=== PATIENT | male | born 1975 | race Caucasian/White ===

== ENCOUNTER 2017-02-26 05:07 | Emergency (ER) | payer OTHER ==
--- NOTE | 2017-02-26 05:31 | ER Document Report ---
HPI - HPI Notes: Patient is a 41-year-old male who presents ED complaining of ongoing right ankle pain 1-2 months with evaluation from an orthopedic provider 2 weeks ago. Patient is also complaining of right MTP joint pain 2 days that he believes is another gout flareup. Patient has a history significant for gout and hypertension. Patient states that he has had multiple acute gouty attacks in that same area. She states that he did have an MRI of his right ankle 2 weeks ago which showed soft tissue damage. Patient reports going on vacation to [facility] about 9 days ago and returned 2 days ago. Patient states that he walked about 10 miles which he believes reaggravated his ankle and because the gout flareup in his right MTP joint. Patient states that he has also been running a fever over the last 8-10 hours. Patient states that otherwise he feels well and is eating and drinking without any difficulties. Patient is urinating normally. Patient states that he has had loose stool 2-3 times per day over the last 1-1/2 weeks. Stools are watery. Patient states that he did have an antibiotic prior to that for a finger infection on the right hand, but denies any abdominal cramping or pain associated with his bowel movements. He denies any melena or hematochezia. Denies any headache, neck pain, URI, sore throat, chest pain, palpitations, syncope, cough, shortness of breath, wheeze, dyspnea, abdominal pain, nausea/vomiting, urinary retention, dysuria, hematuria , loss of control of bowel or bladder, numbness/tingling, saddle anesthesia, muscle paralysis/weakness. - ROS Notes: REVIEW OF SYSTEMS: CONSTITUTIONAL : see hpi. EENT: Denies eye, ear, throat, or mouth pain or symptoms. Denies nasal or sinus congestion or discharge. Denies throat, tongue, or mouth swelling or difficulty swallowing. CARDIOVASCULAR: Denies chest pain. Denies palpitations or racing or irregular heart beat. Denies ankle edema. RESPIRATORY: Denies cough, cold, or chest congestion. Denies shortness of breath, difficulty breathing, or wheezing. GASTROINTESTINAL: Denies abdominal pain or distention. Denies nausea, vomiting. Denies blood in vomitus, stools, or per rectum. Denies black, tarry stools. Denies constipation. GENITOURINARY: Denies difficulty urinating, painful urination, burning, frequency, blood in urine, or discharge. MUSCULOSKELETAL: see hpi SKIN: Denies rash, lesions or sores. NEUROLOGICAL: Denies confusion or altered mental status. Denies passing out or loss of consciousness. Denies dizziness or lightheadedness. Denies headache. Denies weakness or paralysis or loss of use of either side. Denies problems with gait or speech. Denies sensory loss, numbness, or tingling. ALL OTHER SYSTEMS REVIEWED AND NEGATIVE. Dictation was performed using [employer] voice recognition software Past Medical History - Social History Smoking Status: Unknown if Ever Smoked Family History: Reviewed & Not Pertinent - Past Medical History Cardiac Medical History: Reports: Hx Hypercholesterolemia, Hx Hypertension Denies: Hx Coronary Artery Disease, Hx Heart Attack Pulmonary Medical History: Denies: Hx Asthma, Hx Bronchitis, Hx COPD, Hx Pneumonia Neurological Medical History: Denies: Hx Cerebrovascular Accident, Hx Seizures GI Medical History: Reports: Hx Gastroesophageal Reflux Disease Musculoskeltal Medical History: Reports Hx Arthritis - KNEES, GOUT, Reports Hx Gout Psychiatric Medical History: Reports: Hx Anxiety Past Surgical History: Reports: Hx Cardiac Catheterization - to close extra duct at age 16 - Immunizations Hx Diphtheria, Pertussis, Tetanus Vaccination: Yes Vertical Provider Document - CONSTITUTIONAL Agree With Documented VS: Yes Notes: PHYSICAL EXAMINATION: GENERAL: Well-appearing, well-nourished and in no acute distress. A&Ox4 HEAD: Atraumatic, normocephalic. EYES: Pupils equal round and reactive to light, extraocular movements intact, sclera anicteric, conjunctiva are normal. ENT: Nares patent and without discharge. oropharynx clear without exudates. No tonsilar hypertrophy or erythema. Moist mucous membranes. NECK: Normal range of motion, supple without lymphadenopathy. No rigidity/ meningismus. LUNGS: Breath sounds clear to auscultation bilaterally and equal. No wheezes rales or rhonchi. HEART: Regular rate and rhythm without murmurs, rubs, gallops. ABDOMEN: Soft, nontender, nondistended abdomen. No guarding, no rebound. No masses appreciated. Normal bowel sounds present. No CVA tenderness bilaterally. Musculoskeletal: FROM to passive/active. Strength 5+/5. Julio negative. No calf erythema or swelling. Rt ankle: + mild tenderness to the rt lateral malleolus. + mild swelling. ( pt reports chronic and same pain eval'd by Ortho). Rt foot: + tenderness to the rt MTP joint. No obvious erythema, streaks, or deformity. + tenderness to light touch as well. No effusion. Extremities: No cyanosis, clubbing, or edema b/l. Peripheral pulses 2+. Capillary refill less than 3 seconds. NEUROLOGICAL: Cranial nerves grossly intact. Normal speech, normal gait. Normal sensory, motor exams PSYCH: Normal mood, normal affect. SKIN: several small 0.1cm papular rash to the LE's b/l. Non-tender. No signs of cellulitis or abscess. - INFECTION CONTROL TRAVEL OUTSIDE OF THE [place] IN LAST 30 DAYS: No Course - Re-evaluation Re-evalutation: 02/26/17 07:[address] Hanna who also eval'd the patient: Patient is an afebrile, well-hydrated, 41-year-old male who presents to the ED with diarrhea, suspect traveler's, gout to the rt MTP, and soft tissue inflammation to the rt ankle. CBC unremarkable. CMP pending. If CMP comes back unremarkable, we will be able to discharge in stable condition. Low suspicion/risk for any septic joint, acute appendicitis, bowel obstruction, acute cholecystitis, perforated diverticulitis, incarcerated hernia, pancreatitis, perforated ulcer, peritonitis, sepsis, testicular torsion, or other systemic emergent condition at this time. Patient is aware that his condition can change from initial presentation and he needs to monitor symptoms closely and seek medical attention if any acute changes. Pt was given tylenol/ toradol from EMS. Solumedrol given IV today. I will send him home with the finishing Rx for Cipro 750mg PO BID x3 days as well as a prednisone taper and norco dispense pack. Conservative measures otherwise for symptoms. Recheck with PCM in 2-3 days. Consider consult with a analysis internship/Orthopedics. Return to the ED with any worsening/concerning symptoms otherwise as reviewed in discharge. Patient is in agreement. - Laboratory Result Diagrams: 02/26/17 06:25 02/26/17 06:25 Discharge - Discharge Clinical Impression: Diarrhea Qualifiers: Diarrhea type: presumed infectious Qualified Code(s): A09 - Infectious gastroenteritis and colitis, unspecified Gout Qualifiers: Gout site: toe Gout etiology: unspecified cause Chronicity: acute Laterality: right Qualified Code(s): M10.9 - Gout, unspecified Right ankle pain Qualifiers: Chronicity: acute Qualified Code(s): M25.571 - Pain in right ankle and joints of right foot Condition: Stable Disposition: HOME, SELF-CARE Instructions: Ankle Stirrup Splint ([facility]), Use of Crutches ([facility]), Diarrhea, Nonspecific ([facility]), Gout ([facility]), Gout Diet ([facility]), Ice & Elevation ([facility]) Additional Instructions: Maintain adequate fluid and food intake [place] diet ([employer] Bananas, rice, apples, toast, etc tylenol if needed Monitor for any worsening symptoms Rest, Ice, Compression, Elevation; use splint/crutches as directed Recheck with your PCM in 2-3 days Consider consult with Gastroenterology for ongoing/worsening symptoms Return to the ED with any worsening symptoms and/or development of fever, headache, chest pain, palpitations, syncope, shortness of breath, trouble breathing, abdominal pain, n/v/d, blood in stool/urine, weakness, or other worsening symptoms that are concerning to you. Prescriptions: Ciprofloxacin HCl [Cipro 750 mg Tablet] 750 mg PO BID #5 tablet Prednisone [Deltasone 10 mg Tablet] 10 mg PO ASDIR PRN #21 tablet PRN Reason: Forms: Elevated Blood Pressure Referrals: DAGOBERTO MC MD [ACTIVE STAFF] - Follow up as needed [facility] [Provider Group] - Follow up as needed
[2017-02-26] MEDS ORDERED: DOXYCYCLINE HYCLATE 100 MG TABLET PO ONE (06:05)
[2017-02-26] MEDS ORDERED: MORPHINE SULFATE IR 15 MG TABLET PO ONE (06:05)
[2017-02-26] MEDS ORDERED: NORMAL SALINE 1000 ML 1,000 ML IV ONE (06:05)
[2017-02-26] MEDS ORDERED: CIPROFLOXACIN HCL 750 MG TABLET PO ONE (06:08)
[2017-02-26] MEDS ORDERED: HYDROCODONE/ACETAMINOPHEN 5-325 MG 6 TAB/DSPK PO PRN (06:16)
[2017-02-26] MEDS ORDERED: METHYLPREDNISOLONE INJ 125 MG/2 ML SDV IV ONE (06:33)
[2017-02-26 06:43] LABS: ABSOLUTE BASOPHILS # (AUTO) 0.1 10^3/uL (0.0-0.2); ABSOLUTE EOSINOPHILS # (AUTO) 0.1 10^3/uL (0.0-0.6); ABSOLUTE LYMPHOCYTES (AUTO) 1.6 10^3/uL (0.5-4.7); ABSOLUTE MONOCYTES (AUTO) 0.8 10^3/uL (0.1-1.4); ABSOLUTE NEUT (AUTO) 5.2 10^3/uL (1.7-8.2); BASOPHILS % (AUTO) 0.7 % (0-2); EOSINOPHILS % (AUTO) 1.6 % (0-6); HEMATOCRIT 37.7 % (37.9-51.0); HEMOGLOBIN 13.1 g/dL (13.5-17.0); HGB HCT DIFFERENCE 1.6; LYMPHOCYTES % (AUTO) 20.8 % (13-45); MEAN CORPUSCULAR HEMOGLOBIN 31.3 pg (27.0-33.4); MEAN CORPUSCULAR HGB CONC 34.7 g/dL (32.0-36.0); MEAN CORPUSCULAR VOLUME 90 fl (80-97); MONOCYTES % (AUTO) 10.7 % (3-13); RED BLOOD COUNT 4.18 10^6/uL (4.35-5.55); RED CELL DISTRIBUTION WIDTH 12.9 % (11.5-14.0); SEGMENTED NEUTROPHILS % (AUTO) 66.2 % (42-78); WHITE BLOOD COUNT 7.9 10^3/uL (4.0-10.5)
[2017-02-26 07:06] LABS: ALANINE AMINOTRANSFERASE 67 U/L (21-72); ALBUMIN 3.8 g/dL (3.5-5.0); ALKALINE PHOSPHATASE 68 U/L (38-126); ANION GAP 16 (5-19); ASPARTATE AMINO TRANSFERASE 58 U/L (17-59); BILIRUBIN,DIRECT 0.4 mg/dL (0.0-0.4); BILIRUBIN,TOTAL 0.9 mg/dL (0.2-1.3); BLOOD UREA NITROGEN 5 mg/dL (7-20); CALCIUM 8.6 mg/dL (8.4-10.2); CARBON DIOXIDE 19 mmol/L (22-30); CHLORIDE 107 mmol/L (98-107); CREATININE RESULT 0.71 mg/dL (0.52-1.25); GLUCOSE 122 mg/dL (75-110); POTASSIUM 3.7 mmol/L (3.6-5.0)
[2017-02-26] MEDS ORDERED: METOCLOPRAMIDE HCL INJ/PF 10 MG/2 ML SDV IV ONE (07:13)
[2017-02-26 08:05] VITALS: BP 118/64
== END 2017-02-26 08:05 | disposition home or self-care (01) ==
LOC: ER 05:07
DX: M10.9 Gout, unspecified (principal); M25.571 Pain in right ankle and joints of right foot; I10 Essential (primary) hypertension; R19.7 Diarrhea, unspecified; R50.9 Fever, unspecified; R21 Rash and other nonspecific skin eruption
CPT/HCPCS: 99283; 96361; 96374; 36415; 85025; 80053; L1902; J2930; J3490; J7030

== ENCOUNTER 2017-06-03 09:18 | Emergency (ER) | payer BC ==
[2017-06-03] MEDS ORDERED: OXYCODONE-ACETAMINOPHEN 5-325 MG TABLET PO ONE ×2 (10:21→14:06)
[2017-06-03] MEDS ORDERED: NAPROXEN 250 MG TABLET PO ONE (10:21)
--- NOTE | 2017-06-03 10:22 | ER Document Report ---
ED Extremity Problem, Lower - General Chief Complaint: Foot Pain Stated Complaint: FOOT PAIN Time Seen by Provider: 06/03/17 09:37 Mode of Arrival: Ambulatory Information source: Patient Notes: 41-year-old male presents to ED for complaint of left foot pain since last night. States he was standing up on a chair last night when he heard a very loud pop. Pain started soon afterwards. He states he is having trouble walking on his foot. States he has a history of gout in this foot but this is not what this pain is. States he had surgery on both knees and he has a lot of problems with his right ankle and foot. TRAVEL OUTSIDE OF THE [place] IN LAST 30 DAYS: No COUNTRY TRAVELED TO/FROM: [facility] Patient complains to provider of: Injury, Pain, Swelling Location: Foot Occurred: Yesterday Where: Home, Indoors Onset/Duration: Gradual Quality of pain: Burning, Sharp Severity: Severe Pain Level: 5 Context: Other Recent injury: Yes Associated symptoms: [place] a pop - Stated on a chair and heard a very loud pop, Painful ambulation Exacerbated by: Hanging down, Movement, Walking Relieved by: Elevation, Ice, Rest - Related Data Allergies/Adverse Reactions: Penicillins Allergy (Unknown, Verified 06/03/17 09:20) Past Medical History - General Information source: Patient - Social History Smoking Status: Current Every Day Smoker Cigarette use (# per day): Yes - Half pack a day Chew tobacco use (# tins/day): No Smoking Education Provided: Yes - 4 minutes Frequency of alcohol use: Social Drug Abuse: None 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 denies: COPD, CVA Patient has suicidal ideation: No Patient has homicidal ideation: No - Past Medical History Cardiac Medical History: Reports: Hx Congestive Heart Failure, Hx Hypercholesterolemia, Hx Hypertension Pulmonary Medical History: Reports: None EENT Medical History: Reports: None Neurological Medical History: Reports: None Endocrine Medical History: Reports: None Renal/ Medical History: Reports: None Malignancy Medical History: Reports None GI Medical History: Reports: Hx Gastroesophageal Reflux Disease Musculoskeltal Medical History: Reports Hx Arthritis - KNEES, GOUT, Reports Hx Gout, Reports Hx Musculoskeletal Deformity, Reports Hx Musculoskeletal Trauma Skin Medical History: Reports None Psychiatric Medical History: Reports: Hx Anxiety, Hx Depression Traumatic Medical History: Reports: Hx Fractures Infectious Medical History: Reports: None Past Surgical History: Reports: Hx Cardiac Catheterization - to close extra duct at age 16, Hx Cholecystectomy, Hx Orthopedic Surgery - Bilat knees - Immunizations Immunizations up to date: Yes Hx Diphtheria, Pertussis, Tetanus Vaccination: Yes Review of Systems - Review of Systems Constitutional: No symptoms reported EENT: No symptoms reported Cardiovascular: No symptoms reported Respiratory: No symptoms reported Gastrointestinal: No symptoms reported Genitourinary: No symptoms reported Male Genitourinary: No symptoms reported Musculoskeletal: Other - Left foot pain to the arch of the foot and above the arch of the foot Skin: No symptoms reported Hematologic/Lymphatic: No symptoms reported Neurological/Psychological: No symptoms reported -: Yes All other systems reviewed and negative Physical Exam - Vital signs Vitals: Temp Pulse Resp BP Pulse Ox 98.3 F 91 18 144/96 H 98 06/03/17 09:22 06/03/17 09:22 06/03/17 09:22 06/03/17 09:22 06/03/17 09:22 Interpretation: Normal - General General appearance: Appears well, Alert - HEENT Head: Normocephalic, Atraumatic Eyes: Normal Pupils: PERRL - Respiratory Respiratory status: No respiratory distress Chest status: Nontender Breath sounds: Normal Chest palpation: Normal - Cardiovascular Rhythm: Regular Heart sounds: Normal auscultation Murmur: No - Abdominal Inspection: Normal Distension: No distension Bowel sounds: Normal Tenderness: Nontender Organomegaly: No organomegaly - Back Back: Normal, Nontender - Extremities General upper extremity: Normal inspection, Nontender, Normal color, Normal ROM , Normal temperature General lower extremity: Normal inspection, Normal temperature. No: Julio's sign Foot: Tender, Ecchymosis, Edema, Metatarsal compress. pain, No evidence of FB. No: Abrasion, Deformity, Instability, Laceration, Nail injury, Puncture wound - Neurological Neuro grossly intact: Yes Cognition: Normal Orientation: AAOx4 Stephany Coma Scale Eye Opening: Spontaneous Stephany Coma Scale Verbal: Oriented Stephany Coma Scale Motor: Obeys Commands Stephany Coma Scale Total: 15 Speech: Normal Motor strength normal: LUE, RUE, LLE, RLE Sensory: Normal - Psychological Associated symptoms: Normal affect, Normal mood - Skin Skin Temperature: Warm Skin Moisture: Dry Skin Color: Normal Course - Re-evaluation Re-evalutation: 06/03/17 14:39 A controlled substance reporting system was investigated. His last narcotic prescription was for 20 Percocet on April 052017. He told me that he had a injury on the other ankle and had an MRI on that.. He has a new injury of a torn tendon today. I have given him a prescription of Percocet he has a posterior ankle splint on he was treated with Percocet twice naproxen and Decadron in the emergency room. I have contacted Dr. Macias and informed him of the injury He instructed the patient should be no weightbearing and should follow-up with the office tomorrow. - Vital Signs Vital signs: Temp Pulse Resp BP Pulse Ox 98.5 F 79 18 137/94 H 100 06/03/17 14:06 06/03/17 14:06 06/03/17 14:06 06/03/17 14:06 06/03/17 14:06 - Diagnostic Test Radiology reviewed: Image reviewed, Reports reviewed Procedures - Immobilization Left Foot Time completed: 14:41 Pre-Proc Neuro Vasc Exam: Normal Immobilizer type: Posterior ankle Performed by: PCT Post-Proc Neuro Vasc Exam: Normal Alignment checked and good: Yes Discharge - Discharge Clinical Impression: distal tibialis anterior tendon tear left Condition: Stable Disposition: HOME, SELF-CARE Additional Instructions: He was seen today for a tear to the distal tibialis anterior tendon on the left foot at its insertion at the base of the first metatarsal. This injury needs a splint foot elevated and no weightbearing this foot should not touch the floor until you follow-up with orthopedics. Splint Pending Casting Your injury can't be casted until the swelling has subsided. Therefore, a temporary splint has been placed to protect the injury. Full use of an injured area is not possible in a splint. You should follow the doctor's instructions concerning rest, ice, and elevation of the injury. Never do anything which causes pain under the splint. Keep the splint on ALL THE TIME until you return for casting. If there is unexpected severe pain, or numbness, discoloration, or swelling beyond the splint, you should return at once. Absolutely no weightbearing on this foot that needs this that she did not touch the ground. You will be discharged home with crutches this foot should not touch the ground until you follow-up with orthopedics. USE OF CRUTCHES: The doctor has recommended that you not bear weight at this time. You will need to use crutches. Adjust the crutches so the tops come to about two inches under the armpit while you are standing upright. Use your hands -- not your armpits -- to support your weight. To get into a chair, support yourself with one crutch on the injured side. Hold the chair with the other hand, then lower yourself while putting all your weight on the good leg. Going up stairs is `good leg up, step up, then bring up crutches and bad leg.' Down stairs is `bad leg and crutches down, then bring good leg down.' If you develop numbness or swelling in an arm or hand, you are using the crutches incorrectly. Return if you are having any problems with the crutches. ICE & ELEVATION: Apply ice packs frequently against the painful area. Many different schedules are recommended, such as "20 minutes on, 20 minutes off" or "one hour ice, two hours rest." If you need to work, you may need to go longer between ice treatments. You should plan to have the area ice packed AT LEAST one- fourth of the time. The ice should be applied over the wrap, tape, or splint, or over a layer of cloth -- not directly against the skin. Some ice bags have a built-in cloth and can be put directly on the skin. Your injured part should be elevated as much as possible over the next 48 hours. Try to keep the injury above the level of the heart. Avoid use of the injured area. Elevation and rest will decrease the swelling. USE OF LRYT-WAX-RYDAYDS IBUPROFEN: Ibuprofen (Advil, Nuprin, Medipren, Motrin IB) is a medication for fever and pain control. In addition, it has anti- inflammatory effects which may be beneficial, especially in the treatment of injuries. It's best to take ibuprofen with food. Persons with ulcer disease or allergy to aspirin should notify their physician of this before taking ibuprofen. Ibuprofen can be given every four to six hours, for a total of four doses daily. Age Pain or fever dose Antiinflammatory dose 6-8 yr 200 mg (1 tab) 200 mg (1 tab) 9-11 yr 200 mg (1 tab) 200-400 mg (1-2 tab) 11-14 yr 200-400 mg (1-2 tab) 400 mg (2 tab) 15-adult 400 mg (2 tab) 600 mg (3 tab) ORAL NARCOTIC MEDICATION: You have been given a prescription for pain control. This medication is a narcotic. It's best taken with food, as nausea can result if taken on an empty stomach. Don't operate machinery or drive within six hours of taking this medication. Do not combine this medicine with alcohol, or with any medication which can cause sedation (such as cold tablets or sleeping pills) unless you get permission from the physician. Narcotics tend to cause constipation. If possible, drink plenty of fluids and eat a diet high in fiber and fruits. Please be aware that prescription narcotics also have the potential for abuse. People become addicted to these medications because of the general sense of wellbeing that they induce. This feeling along with a significant reduction in tension, anxiety, and aggression provides a stimulating seductive quality to these drugs. Once your pain is under control, we encourage you to discard your unused narcotics. FOLLOW-UP CARE: If you have been referred to a physician for follow-up care, call the physician s office for an appointment as you were instructed or within the next two days. If you experience worsening or a significant change in your symptoms, notify the physician immediately or return to the Emergency Department at any time for re-evaluation. Prescriptions: Oxycodone HCl/Acetaminophen [Percocet 5-325 mg Tablet] 1 tab PO Q4HP PRN #15 tablet PRN Reason: Forms: Elevated Blood Pressure, Smoking Cessation Education, Return to Work Referrals: RADHA MACIAS MD [ACTIVE STAFF] - Follow up tomorrow
--- NOTE | 2017-06-03 11:13 | RADIOLOGY REPORT (SQ) ---
EXAM DESCRIPTION: FOOT LEFT COMPLETE COMPLETED DATE/TIME: 06/03/2017 10:42 am REASON FOR STUDY: pain arch COMPARISON: None. NUMBER OF VIEWS: Three views. TECHNIQUE: AP, lateral and oblique radiographic images acquired of the left foot. LIMITATIONS: None. FINDINGS: MINERALIZATION: Normal. BONES: The base of the 1st metatarsal is abnormal. There is sclerosis present. On the AP view, ther e is a linear lucency which could represent a fracture. JOINTS: Bony sclerosis at the base 1st metatarsal at the 1st tarsometatarsal joint. SOFT TISSUES: Dorsal midfoot soft tissue swelling OTHER: No other significant finding. IMPRESSION: Lucency at the base of the 1st metatarsal could represent a fracture. Consider follow-u p MRI or CT TECHNICAL DOCUMENTATION: JOB ID: [id number] [employer]- All Rights Reserved Reading location - IP/workstation name: [email or web address]
--- NOTE | 2017-06-03 13:40 | RADIOLOGY REPORT (SQ) ---
EXAM DESCRIPTION: MRI LT LOWER JOINT WITHOUT COMPLETED DATE/TIME: 06/03/2017 12:40 pm REASON FOR STUDY: left foot possible left foot fracture COMPARISON: Left foot plain films same date TECHNIQUE: Left foot images acquired and stored on PACS. Multiplanar images include fat sensitive se quences as T1, fluid sensitive sequences as FST2/STIR, cartilage sensitive sequences as FSPD, and gra dient echo sequences. LIMITATIONS: None. FINDINGS: There is a tear of the distal tibialis anterior tendon, near its insertion at the base of the 1st metatarsal. This is best shown on coronal series 4, images 32 through 40, sagittal image 5, and axial images 9 through 13. BONE MARROW: No alteration of signal to suggest marrow replacement or edema. No acute fracture. Ther e is an old healed fracture with bony sclerosis at the base of the 1st metatarsal, best shown on sagi ttal series 5, images 8-11. No large osteophytes. EFFUSIONS: No joint effusions. No loose bodies. OSSEOUS ARTICULATIONS: No high-grade joint space narrowing from osteoarthritis. . TALAR DOME AND TIBIAL PLAFOND: Normal cartilage. No osteochondral defect. TIBIALIS ANTERIOR TENDON: There is a tear of the distal tibialis anterior tendon, near its insertion at the base of the 1st metatarsal. This is best shown on coronal series 4, images 32 through 40, sagi ttal image 5, and axial images 9 through 13 DISTAL TIBIALIS POSTERIOR TENDON: Normal morphology and no edema at the navicular attachment. No tend on sheath fluid. DISTAL FLEXOR HALLUCIS LONGUS AND FLEXOR DIGITORUM TENDONS: Normal morphology and no tendon sheath fl uid. No edema of the os trigonum. DISTAL PERONEUS LONGUS AND BREVIS TENDON: Normal morphology and no tendon sheath fluid. No subluxatio n. PLANTAR FASCIA: No signal alteration or tear. ADJACENT SOFT TISSUES: No masses. OTHER: No other significant finding. IMPRESSION: Tear of the distal tibialis anterior tendon near its insertion at the base of the 1st me tatarsal. TECHNICAL DOCUMENTATION: JOB ID: [id number] [employer]- All Rights Reserved Reading location - IP/workstation name: [email or web address]
[2017-06-03] MEDS ORDERED: DEXAMETHASONE SOD PHOS INJ 10 MG/1 ML VIAL IM ONE (13:49)
[2017-06-03 14:19] VITALS: BP 137/94
== END 2017-06-03 14:20 | disposition home or self-care (01) ==
LOC: ER 09:18
DX: S96.812A Strain of other specified muscles and tendons at ankle and foot level, left foot, initial encounter (principal); M79.672 Pain in left foot; X58.XXXA Exposure to other specified factors, initial encounter; F17.210 Nicotine dependence, cigarettes, uncomplicated; Z71.6 Tobacco abuse counseling; I10 Essential (primary) hypertension; Z88.0 Allergy status to penicillin
CPT/HCPCS: 99406; 99284; 96372; 73721; 73630; 29515; J1100

== ENCOUNTER 2018-10-02 15:04 | Emergency (ER) | payer BC ==
--- NOTE | 2018-10-02 15:51 | ER Document Report ---
ED Medical Screen (RME) - General Chief Complaint: Chest Pain Stated Complaint: CHEST PAIN Time Seen by Provider: 10/02/18 15:42 TRAVEL OUTSIDE OF THE [place] IN LAST 30 DAYS: No COUNTRY TRAVELED TO/FROM: [facility] - [facility] Notes: 10/02/18 15:49 Patient is a 43-year-old male with a history of hypertension, hyperlipidemia who presents complaining of chest pain, occ sob, sweats, & palpitations that began yesterday without precipitating event. Patient states that the pain does not radiate. He has been able to eat and drink without difficulty. He is urinating normally and having normal bowel movements. Patient states that he does have some scar tissue in his heart from an ablasion type procedure of "a vessel." Patient was on an airplane 3 weeks ago to [place]. Denies any recent surgery/trauma, personal cancer history, hormone use, smoking, or previous DVT/PE. Denies OZUNA, fever, neck pain, URI, Abd pain, dysuria, back pain, or rash. I have treated and performed a rapid initial assessment of this patient. A comprehensive ED assessment and evaluation of the patient, analysis of test results and completion of medical decision making process will be conducted by additional ED providers. PHYSICAL EXAMINATION: GENERAL: Well-appearing, well-nourished and in no acute distress. A&Ox4. Answers questions appropriately. LUNGS: Breath sounds clear to auscultation bilaterally and equal. No wheezes rales or rhonchi. HEART: Regular rate and rhythm without murmurs, rubs, gallops. Extremities: No cyanosis, clubbing, or edema b/l. Julio negative bilaterally. No lower extremity asymmetry. NEUROLOGICAL: Normal speech, normal gait. PSYCH: Normal mood, normal affect. - Related Data Allergies/Adverse Reactions: Penicillins Allergy (Unknown, Verified 10/02/18 15:04) Past Medical History - Past Medical History Cardiac Medical History: Reports: Hx Congestive Heart Failure, Hx Hypercholesterolemia, Hx Hypertension Denies: Hx Coronary Artery Disease, Hx Heart Attack Pulmonary Medical History: Denies: Hx Asthma, Hx Bronchitis, Hx COPD, Hx Pneumonia Neurological Medical History: Denies: Hx Cerebrovascular Accident, Hx Seizures Renal/ Medical History: Denies: Hx Peritoneal Dialysis GI Medical History: Reports: Hx Gastroesophageal Reflux Disease Musculoskeltal Medical History: Reports Hx Arthritis - KNEES, GOUT, Reports Hx Gout, Reports Hx Musculoskeletal Deformity, Reports Hx Musculoskeletal Trauma Psychiatric Medical History: Reports: Hx Anxiety, Hx Depression Traumatic Medical History: Reports: Hx Fractures Past Surgical History: Reports: Hx Cardiac Catheterization - to close extra duct at age 16, Hx Cholecystectomy, Hx Orthopedic Surgery - Bilat knees - Immunizations Immunizations up to date: Yes Hx Diphtheria, Pertussis, Tetanus Vaccination: Yes Physical Exam - Vital signs Vitals: Temp Pulse Resp BP Pulse Ox 98.4 F 86 20 131/83 H 95 10/02/18 15:30 10/02/18 15:30 10/02/18 15:30 10/02/18 15:30 10/02/18 15:30 Course - Vital Signs Vital signs: Temp Pulse Resp BP Pulse Ox 98.4 F 86 20 131/83 H 95 10/02/18 15:30 10/02/18 15:30 10/02/18 15:30 10/02/18 15:30 10/02/18 15:30
[2018-10-02 16:14] LABS: ABSOLUTE EOSINOPHILS # (AUTO) 0.1 10^3/uL (0.0-0.6); ABSOLUTE MONOCYTES (AUTO) 0.6 10^3/uL (0.1-1.4); ABSOLUTE NEUT (AUTO) 3.9 10^3/uL (1.7-8.2); BASOPHILS % (AUTO) 0.7 % (0-2); EOSINOPHILS % (AUTO) 1.9 % (0-6); HEMATOCRIT 39.9 % (37.9-51.0); HEMOGLOBIN 13.6 g/dL (13.5-17.0); MEAN CORPUSCULAR HEMOGLOBIN 30.5 pg (27.0-33.4); MEAN CORPUSCULAR VOLUME 90 fl (80-97); PLATELET COUNT 235 10^3/uL (150-450); RED BLOOD COUNT 4.45 10^6/uL (4.35-5.55); RED CELL DISTRIBUTION WIDTH 12.7 % (11.5-14.0); SEGMENTED NEUTROPHILS % (AUTO) 58.4 % (42-78); TOTAL CELLS COUNTED % (AUTO) 100 %; WHITE BLOOD COUNT 6.6 10^3/uL (4.0-10.5)
--- NOTE | 2018-10-02 16:23 | EKG REPORT ---
SEVERITY:- ABNORMAL ECG - SINUS RHYTHM LEFT VENTRICULAR HYPERTROPHY NONSPECIFIC INFERIOR ST-T CHANGES : Confirmed by: Nick Herrera MD 02-Oct-2018 16:21:42
[2018-10-02 16:39] LABS: ALANINE AMINOTRANSFERASE 71 U/L (21-72); ALBUMIN 4.3 g/dL (3.5-5.0); ALKALINE PHOSPHATASE 86 U/L (38-126); ANION GAP 12 (5-19); ASPARTATE AMINO TRANSFERASE 79 U/L (17-59); BILIRUBIN,DIRECT 0.3 mg/dL (0.0-0.4); BILIRUBIN,TOTAL 0.6 mg/dL (0.2-1.3); BLOOD UREA NITROGEN 10 mg/dL (7-20); CALCIUM 9.6 mg/dL (8.4-10.2); CARBON DIOXIDE 24 mmol/L (22-30); CHLORIDE 104 mmol/L (98-107); GLUCOSE 127 mg/dL (75-110); POTASSIUM 4.1 mmol/L (3.6-5.0); SODIUM 139.5 mmol/L (137-145); TOTAL PROTEIN 6.9 g/dL (6.3-8.2)
[2018-10-02 16:52] LABS: NT PRO BNP 32 pg/mL (<125)
--- NOTE | 2018-10-02 16:52 | RADIOLOGY REPORT (SQ) ---
EXAM DESCRIPTION: CHEST 2 VIEWS COMPLETED DATE/TIME: 10/02/2018 4:39 pm REASON FOR STUDY: CP COMPARISON: None. EXAM PARAMETERS: NUMBER OF VIEWS: two views TECHNIQUE: Digital Frontal and Lateral radiographic views of the chest acquired. RADIATION DOSE: NA LIMITATIONS: none FINDINGS: LUNGS AND PLEURA: No opacities, masses or pneumothorax. No pleural effusion. MEDIASTINUM AND HILAR STRUCTURES: No masses or contour abnormalities. HEART AND VASCULAR STRUCTURES: Heart normal size. No evidence for failure. BONES: No acute findings. HARDWARE: None in the chest. OTHER: No other significant finding. IMPRESSION: NO ACUTE RADIOGRAPHIC FINDING IN THE CHEST. TECHNICAL DOCUMENTATION: JOB ID: [id number] [employer]- All Rights Reserved Reading location - IP/workstation name: [email or web address]
--- NOTE | 2018-10-02 16:53 | ER Document Report ---
Addendum entered and electronically signed by EMMA REYES PA-C 10/02/18 20:37: Course - Re-evaluation Re-evalutation: 10/02/18 20:34 OF NOTE: PLEASE CORRECT HEART SCORE IT SHOULD BE A 3 and NOT A 4. THIS WAS A TYPO. As his story is slightly suspicious-0 pts, he gets 1pt for his age, and 2 pts for his risk factors of htn, hyperlipidemia, and fam hx, his trop and delta trop were neg-0pts. his ekg was wnl per dr wong-0 pts for a total of a heart score of a 3. - Vital Signs Vital signs: Temp Pulse Resp BP Pulse Ox 98.4 F 86 20 131/83 H 95 10/02/18 15:30 10/02/18 15:30 10/02/18 15:30 10/02/18 15:30 10/02/18 15:30 - Laboratory Result Diagrams: 10/02/18 16:02 10/02/18 16:02 Laboratory results interpreted by me: 10/02/18 16:02 Glucose 127 H Magnesium 1.5 L AST 79 H Original Note: HPI - HPI Patient complains to provider of: chest pain Time Seen by Provider: 10/02/18 15:42 Onset: Yesterday Onset/Duration: Intermittent Quality of pain: Sharp Severity: Mild Pain Level: 2 Context: 43-year-old male with history of hypertension, hyperlipidemia, depression, anxiety, history of remote what sounds like an ablation for some type of arrhythmia the patient is not sure of the name of as a child with no residual deficits who takes verapamil and metoprolol, here for some left-sided chest pain that radiates towards his left armpit intermittently for the last 2 days and s tates it lasts less than 20 seconds each time but multiple times throughout the day. He states the last time this happened he required his ablation. He states he felt a little nauseous and sweaty and had some shortness of breath when he has this pain. He states it happens more with exertion. He states that it still happens at rest but not as frequently. No ripping or tearing sensation. No blood thinners. No syncope. No changes in medication or diet. No changes in weight. No history of diabetes or asthma. No recent antibiotics or steroids or illness. He has not taken anything for his symptoms. 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 PCP is Dr. Riley in [place]. He states he has some increased stress at work and is not sure if this is just his anxiety. he is requesting something for anxiety here. he usually takes zoloft at home. no other psych meds. no si/hi, or vis/aud hallucinations. he does feel safe at home. He has not had a recent stress test in the last 2 to 3 years. Pt denies any prior personal hx of cad. denies any family history of sudden or cardiac dz at a young age however has a brother and his father who have had cabgs in their 60s. no syncope. no palpitations. no hx of mi, cva, tia, or cad. no ripping or tearing sensation. denies any blood thinners. No prior history of blood clots. No recent long distance travel/immobilization other than going to [place] last week where he was in a plane at the longest time frame for about 3hrs at the most, no recent surgery, hemoptysis, history of cancer, or calf pain/swelling. denies drug use. Associated Symptoms: Chest pain, Nausea, Shortness of breath, Sweating Similar symptoms previously: Yes Recently seen / treated by doctor: No - ROS Systems Reviewed and Negative: Yes All other systems reviewed and negative - to include 10, unless mentioned in the hpi - DERM Skin Color: Normal Past Medical History - General Information source: Patient - Social History Smoking Status: Former Smoker Chew tobacco use (# tins/day): No Frequency of alcohol use: Social Drug Abuse: None Lives with: Spouse/Significant other Family History: Arthritis, CAD, DM, Hyperlipidemia, Hypertension, Malignancy, Thyroid Disfunction. denies: COPD, CVA Patient has suicidal ideation: No Patient has homicidal ideation: No - Past Medical History Cardiac Medical History: Reports: Hx Hypercholesterolemia, Hx Hypertension, Other - some form of arrythmia as a child that required an ablation. no sx since. Denies: Hx Coronary Artery Disease, Hx DVT, Hx Heart Attack, Hx Pulmonary Embolism, Hx Heart Murmur Pulmonary Medical History: Denies: Hx Asthma, Hx Bronchitis, Hx COPD, Hx Pneumonia Neurological Medical History: Denies: Hx Cerebrovascular Accident, Hx Seizures Endocrine Medical History: Denies: Hx Diabetes Mellitus Type 1, Hx Diabetes Mellitus Type 2, Hx Hyperthyroidism, Hx Hypothyroidism Renal/ Medical History: Denies: Hx Peritoneal Dialysis Malignancy Medical History: Reports None GI Medical History: Reports: Hx Gastroesophageal Reflux Disease Musculoskeletal Medical History: Reports Hx Arthritis - KNEES, GOUT, Reports Hx Gout, Reports Hx Musculoskeletal Deformity, Reports Hx Musculoskeletal Trauma Psychiatric Medical History: Reports: Hx Anxiety, Hx Depression Traumatic Medical History: Reports: Hx Fractures Past Surgical History: Reports: Hx Cardiac Catheterization - to close extra duct at age 16, Hx Cardiac Surgery - ablation for some type of unknown arrythmia., Hx Cholecystectomy, Hx Orthopedic Surgery - Bilat knees - Immunizations Immunizations up to date: Yes Hx Diphtheria, Pertussis, Tetanus Vaccination: Yes Vertical Provider Document - CONSTITUTIONAL Notes: >>>> PHYSICAL_EXAM: GENERAL_APPEARANCE: well_nourished, alert, cooperative, no_acute_distress, no_obvious_discomfort. pleasant, obese middle aged white male, smiling, speaking in full sentences, in no sign of pain or resp distress, at bedside, VITALS: reviewed, see vital signs table. HEAD: no_swelling\tenderness on the head. normocephalic. atraumatic. no tellez signs. no raccoons eyes. EARS: canals_clear_bilat, TMs_clear. EYES: PERRL, EOMI, conjunctiva_clear. NOSE: no_nasal_discharge. MOUTH: (-)decreased moisture. THROAT: no_tonsilar_inflammation, no_airway_obstruction. no_lymphadenopathy NECK: supple, no_neck_tenderness, (-)thyromegaly. full rom. full strength. no jvd. no carotid bruit. no meningeal signs. BACK: no_back_tenderness. CHEST_WALL: no_chest_tenderness. no overlying skin changes LUNGS: no_wheezing, ctab (-)accessory muscle use, good air exchange bilateral. HEART: normal_rate, normal_rhythm, no_murmur, ABDOMEN: normal_BS, soft, no_abd_tenderness, (-)guarding, (-)rebound, no_organomegaly, no distension or peritoneal signs. no cva ttp EXTREMITIES: strength 5/5 in all_extremities, good pulses in all_extremities, no_swelling\tenderness in the extremities, no_edema. full rom. normal gait. good pulses. brisk cap refill. good hand shift coordinator. neg teresa sign NEURO: motor and sensation intact, cranial nerves 2-12 intact, cerebellar fxn intact SKIN: warm, dry, good_color, no_rash. MENTAL_STATUS: speech_clear, oriented_X_3, normal_affect, responds_appropriately to questions. - INFECTION CONTROL TRAVEL OUTSIDE OF THE [place] IN LAST 30 DAYS: No Course - Re-evaluation Re-evalutation: 10/02/18 17:54 Patient here for further intermittent brief left-sided chest pain since yesterday. heart score is a 4. he is PERC Negative. Labs unremarkable. Initial EKG unremarkable. Delta troponin was neg. Repeat EKG 3 hours later showed sinus at 70 bpm with left ventricular hypertrophy, abnormal T waves consider inferior ischemia, reviewed by Dr. Wong. No STEMI. Chest x-ray was negative per radiology and reviewed by myself. he did request something for anxiety so I did order him some hydroxyzine. He can follow-up with his primary care doctor or psychiatrist for further anxiety medicine after Dispo, he denied chest pain while here so no CORRINE protocol was given. f/u with pcp/psych/cards in 1-2 days. advised to return for any worsening sx. vss. pt well apparing. satting well on ra. On reexam, pt improved with tx listed. remained stable. nontoxic. well appearing. pain controlled. tolerating po. requesting to go home. case discussed with ER Attending, Dr. wong, who directed and agrees with plan of care and advised no further workup indicated at this time and pt is stable for dc home with close f/u with pcp/specialist. Documentation achieved through voice recording which my lead to some occasional accidental typographical errors. Extensive efforts have been made to proof read documentation to make sure these are the least as possible. 10/02/18 17:58 = Category Date Time Status Continuous Cardiac Monitoring (ED) CONTINUOUS Care 10/02/18 15:47 Active EKG Documentation STAT Care 10/02/18 15:05 Completed EKG Documentation STAT Care 10/02/18 18:28 Completed Pulse Oximeter Continuous (ED) CONTINUOUS Care 10/02/18 15:47 Active Saline Lock (ED) NOW Care 10/02/18 15:47 Active CHEST 2 VIEWS [RAD] Stat Exams 10/02/18 15:46 Completed BNP (In-House) [NT PRO BNP] [CHEM] Stat Lab 10/02/18 16:02 Completed CBC WITH DIFF [HEME] Stat Lab 10/02/18 16:02 Completed COMPREHENSIVE METABOLIC PANEL [CHEM] Stat Lab 10/02/18 16:02 Completed MAGNESIUM [CHEM] Stat Lab 10/02/18 16:02 Completed THYROID STIMULATING HORMONE [CHEM] Stat Lab 10/02/18 16:02 Completed TROPONIN I [CHEM] Stat Lab 10/02/18 16:02 Completed TROPONIN I [CHEM] Timed Lab 10/02/18 19:00 Ordered Hydroxyzine Pamoate [Vistaril 50 mg Capsule] Med 10/02/18 19:45 Once 50 mg PO NOW ONE EKG ER ONLY [ER] Routine Oth 10/02/18 19:00 Active EKG ER ONLY [ER] Stat Oth 10/02/18 Completed 10/02/18 20:29 - Vital Signs Vital signs: Temp Pulse Resp BP Pulse Ox 98.4 F 86 20 131/83 H 95 10/02/18 15:30 10/02/18 15:30 10/02/18 15:30 10/02/18 15:30 10/02/18 15:30 10/02/18 20:02 Temp Pulse Resp BP Pulse Ox 10/02/18 15:30 98.4 F 86 20 131/83 H 95 - Laboratory Result Diagrams: 10/02/18 16:02 10/02/18 16:02 Laboratory results interpreted by me: 10/02/18 16:02 Glucose 127 H Magnesium 1.5 L AST 79 H 10/02/18 17:55 Labs- Entire Visit 10/02/18 10/02/18 10/02/18 16:02 16:02 16:02 WBC 6.6 RBC 4.45 Hgb 13.6 Hct 39.9 MCV 90 MCH 30.5 MCHC 34.0 RDW 12.7 Plt Count 235 Seg Neutrophils % 58.4 Lymphocytes % 30.0 Monocytes % 9.0 Eosinophils % 1.9 Basophils % 0.7 Absolute Neutrophils 3.9 Absolute Lymphocytes 2.0 Absolute Monocytes 0.6 Absolute Eosinophils 0.1 Absolute Basophils 0.0 Sodium 139.5 Potassium 4.1 Chloride 104 Carbon Dioxide 24 Anion Gap 12 BUN 10 Creatinine 0.65 Est GFR ( Amer) > 60 Est GFR (Non-Af Amer) > 60 Glucose 127 H Calcium 9.6 Magnesium 1.5 L Total Bilirubin 0.6 Direct Bilirubin 0.3 Neonat Total Bilirubin Not Reportable Neonat Direct Bilirubin Not Reportable Neonat Indirect Bili Not Reportable AST 79 H ALT 71 Alkaline Phosphatase 86 Troponin I < 0.012 NT-Pro-B Natriuret Pep 32 Total Protein 6.9 Albumin 4.3 TSH 10/02/18 16:02 WBC RBC Hgb Hct MCV MCH MCHC RDW Plt Count Seg Neutrophils % Lymphocytes % Monocytes % Eosinophils % Basophils % Absolute Neutrophils Absolute Lymphocytes Absolute Monocytes Absolute Eosinophils Absolute Basophils Sodium Potassium Chloride Carbon Dioxide Anion Gap BUN Creatinine Est GFR ( Amer) Est GFR (Non-Af Amer) Glucose Calcium Magnesium Total Bilirubin Direct Bilirubin Neonat Total Bilirubin Neonat Direct Bilirubin Neonat Indirect Bili AST ALT Alkaline Phosphatase Troponin I NT-Pro-B Natriuret Pep Total Protein Albumin TSH 1.10 10/02/18 20:30 Labs- Entire Visit 10/02/18 10/02/18 10/02/18 16:02 16:02 16:02 WBC 6.6 RBC 4.45 Hgb 13.6 Hct 39.9 MCV 90 MCH 30.5 MCHC 34.0 RDW 12.7 Plt Count 235 Seg Neutrophils % 58.4 Lymphocytes % 30.0 Monocytes % 9.0 Eosinophils % 1.9 Basophils % 0.7 Absolute Neutrophils 3.9 Absolute Lymphocytes 2.0 Absolute Monocytes 0.6 Absolute Eosinophils 0.1 Absolute Basophils 0.0 Sodium 139.5 Potassium 4.1 Chloride 104 Carbon Dioxide 24 Anion Gap 12 BUN 10 Creatinine 0.65 Est GFR ( Amer) > 60 Est GFR (Non-Af Amer) > 60 Glucose 127 H Calcium 9.6 Magnesium 1.5 L Total Bilirubin 0.6 Direct Bilirubin 0.3 Neonat Total Bilirubin Not Reportable Neonat Direct Bilirubin Not Reportable Neonat Indirect Bili Not Reportable AST 79 H ALT 71 Alkaline Phosphatase 86 Troponin I < 0.012 NT-Pro-B Natriuret Pep 32 Total Protein 6.9 Albumin 4.3 TSH 10/02/18 10/02/18 16:02 19:43 WBC RBC Hgb Hct MCV MCH MCHC RDW Plt Count Seg Neutrophils % Lymphocytes % Monocytes % Eosinophils % Basophils % Absolute Neutrophils Absolute Lymphocytes Absolute Monocytes Absolute Eosinophils Absolute Basophils Sodium Potassium Chloride Carbon Dioxide Anion Gap BUN Creatinine Est GFR ( Amer) Est GFR (Non-Af Amer) Glucose Calcium Magnesium Total Bilirubin Direct Bilirubin Neonat Total Bilirubin Neonat Direct Bilirubin Neonat Indirect Bili AST ALT Alkaline Phosphatase Troponin I < 0.012 NT-Pro-B Natriuret Pep Total Protein Albumin TSH 1.10 - Diagnostic Test Radiology reviewed: Image reviewed, Reports reviewed Radiology results interpreted by me: 10/02/18 17:56 Chest X-Ray 10/02/18 15:46 IMPRESSION: NO ACUTE RADIOGRAPHIC FINDING IN THE CHEST. - EKG Interpretation by Me EKG shows normal: Sinus rhythm Rate: Normal - 80 bpm, no stemi, unchanged from prior. reviewed with dr wong Rhythm: No: Arrthymia, A.Fib, A.Flutter Voltage: Consistant with LVH When compared to previous EKG there are: No significant change Discharge - Discharge Clinical Impression: Chest pain Qualifiers: Chest pain type: unspecified Qualified Code(s): R07.9 - Chest pain, unspecified Condition: Good Disposition: HOME, SELF-CARE Instructions: Chest Pain of Unclear Cause ([facility]) Additional Instructions: Follow-up with PCP/cardiology 1 to 2 days. Return for any worsening symptoms. continue to take your meds as prescribed.
[2018-10-02 16:54] LABS: TROPONIN I < 0.012 ng/mL
[2018-10-02] MEDS ORDERED: HYDROXYZINE PAMOATE 50 MG CAPSULE PO ONE (19:45)
[2018-10-02 21:19] VITALS: BP 112/67
--- NOTE | 2018-10-03 08:33 | EKG REPORT ---
SEVERITY:- ABNORMAL ECG - SINUS RHYTHM LEFT VENTRICULAR HYPERTROPHY ABNORMAL T, CONSIDER ISCHEMIA, INFERIOR LEADS : Confirmed by: Nick Herrera MD 03-Oct-2018 08:32:35
== END 2018-10-02 21:19 | disposition home or self-care (01) ==
LOC: ER 15:04
DX: R07.9 Chest pain, unspecified (principal); R06.02 Shortness of breath; R68.84 Jaw pain; R61 Generalized hyperhidrosis; R00.2 Palpitations; I50.9 Heart failure, unspecified; I11.0 Hypertensive heart disease with heart failure; Z87.891 Personal history of nicotine dependence
CPT/HCPCS: 36415; 71046; 80053; 83735; 83880; 84443; 84484; 85025; 93005; 93010; 99285

== ENCOUNTER 2019-07-05 10:15 | Emergency (ER) | payer BC ==
[2019-07-05] MEDS ORDERED: ONDANSETRON HCL INJ/PF 4 MG/2 ML SDV IV ONE (10:33)
[2019-07-05] MEDS ORDERED: NORMAL SALINE 1000 ML 1,000 ML IV ONE ×2 (10:33→11:51)
[2019-07-05] MEDS ORDERED: KETOROLAC TROMETHAMINE INJ/PF 30 MG/1 ML SDV IV ONE (10:34)
[2019-07-05] MEDS ORDERED: MORPHINE SULFATE 10 MG/ML INJ IV ONE ×3 (10:34→16:10)
[2019-07-05 10:40] LABS: ABSOLUTE EOSINOPHILS # (AUTO) 0.2 10^3/uL (0.0-0.6); ABSOLUTE LYMPHOCYTES (AUTO) 2.2 10^3/uL (0.5-4.7); ABSOLUTE MONOCYTES (AUTO) 1.2 10^3/uL (0.1-1.4); ABSOLUTE NEUT (AUTO) 7.3 10^3/uL (1.7-8.2); BASOPHILS % (AUTO) 0.1 % (0-2); EOSINOPHILS % (AUTO) 1.9 % (0-6); HEMATOCRIT 39.7 % (37.9-51.0); HEMOGLOBIN 13.9 g/dL (13.5-17.0); LYMPHOCYTES % (AUTO) 20.5 % (13-45); MEAN CORPUSCULAR HEMOGLOBIN 31.7 pg (27.0-33.4); MEAN CORPUSCULAR HGB CONC 35.1 g/dL (32.0-36.0); MEAN CORPUSCULAR VOLUME 90 fl (80-97); MONOCYTES % (AUTO) 10.6 % (3-13); PLATELET COUNT 251 10^3/uL (150-450); RED BLOOD COUNT 4.39 10^6/uL (4.35-5.55); RED CELL DISTRIBUTION WIDTH 12.6 % (11.5-14.0); SEGMENTED NEUTROPHILS % (AUTO) 66.9 % (42-78); TOTAL CELLS COUNTED % (AUTO) 100 %; WHITE BLOOD COUNT 10.9 10^3/uL (4.0-10.5)
[2019-07-05 10:50] LABS: APPEARANCE,URINE CLOUDY; BILIRUBIN,URINE NEGATIVE (NEGATIVE); COLOR,URINE YELLOW; GLUCOSE, URINE NEGATIVE (NEGATIVE); KETONES,URINE NEGATIVE (NEGATIVE); LEUKOCYTE ESTERASE,URINE NEGATIVE (NEGATIVE); NITRITE,URINE NEGATIVE (NEGATIVE); PROTEIN,URINE 100 mg/dL (NEGATIVE); UROBILINOGEN,URINE NEGATIVE mg/dL (<2.0)
[2019-07-05 10:56] LABS: ALBUMIN 4.3 g/dL (3.5-5.0); ALKALINE PHOSPHATASE 60 U/L (38-126); ANION GAP 9 (5-19); ASPARTATE AMINO TRANSFERASE 37 U/L (17-59); BILIRUBIN,TOTAL 0.4 mg/dL (0.2-1.3); BLOOD UREA NITROGEN 12 mg/dL (7-20); CALCIUM 9.3 mg/dL (8.4-10.2); CARBON DIOXIDE 24 mmol/L (22-30); CHLORIDE 102 mmol/L (98-107); GLUCOSE 94 mg/dL (75-110); POTASSIUM 4.9 mmol/L (3.6-5.0); TOTAL PROTEIN 6.8 g/dL (6.3-8.2)
[2019-07-05 11:03] LABS: URINE AMPHETAMINES SCREEN NEGATIVE; URINE BARBITURATES SCREEN NEGATIVE; URINE BENZODIAZEPINES SCREEN NEGATIVE; URINE COCAINE SCREEN NEGATIVE; URINE METHADONE SCREEN NEGATIVE; URINE PHENCYCLIDINE SCREEN NEGATIVE
--- NOTE | 2019-07-05 11:03 | RADIOLOGY REPORT (SQ) ---
EXAM DESCRIPTION: CT ABD/PELVIS NO ORAL OR IV IMAGES COMPLETED DATE/TIME: 07/05/2019 10:53 am REASON FOR STUDY: left flank/pain with urination/gout history COMPARISON: 2014 TECHNIQUE: CT scan of the abdomen and pelvis performed without intravenous or oral contrast. Images reviewed with lung, soft tissue, and bone windows. Reconstructed coronal and sagittal MPR images revi ewed. All images stored on PACS. All CT scanners at this facility use dose modulation, iterative reconstruction, and/or weight based d osing when appropriate to reduce radiation dose to as low as reasonably achievable (ALARA). [facility]: Dose Right [facility]: CareDose [facility]: Dose Right [facility]: Teradose 4D [facility]: Smart [employer] RADIATION DOSE: CT Rad equipment meets quality standard of care and radiation dose reduction techniq ues were employed. CTDIvol: 15.3 mGy. DLP: 845 mGy-cm.mGy. LIMITATIONS: None. FINDINGS: LOWER CHEST: No significant findings. No nodules or infiltrates. NON-CONTRASTED LIVER, SPLEEN, ADRENALS: Evaluation limited by lack of IV contrast. No identified sign ificant masses. PANCREAS: No masses. No peripancreatic inflammatory changes. GALLBLADDER: Surgically absent. RIGHT KIDNEY AND URETER: No solid masses. No significant calcification. No hydronephrosis or hydroure ter. LEFT KIDNEY AND URETER: No solid masses. No significant calcification. No hydronephrosis or hydrouret er. AORTA AND RETROPERITONEUM: No aneurysm. No retroperitoneal masses or adenopathy. BOWEL AND PERITONEAL CAVITY: No obvious masses or inflammatory changes. No free fluid. APPENDIX: Normal. PELVIS, BLADDER, AND ABDOMINAL WALL:No abnormal masses. No free fluid. Bladder normal. Status post u mbilical hernia repair. No recurrent hernia. BONES: No significant findings. OTHER: No other significant finding. IMPRESSION: NO SIGNIFICANT OR ACUTE PROCESS IN THE ABDOMEN OR PELVIS. TECHNICAL DOCUMENTATION: JOB ID: [id number] Quality ID # [id number]: Final reports with documentation of one or more dose reduction techniques (e.g., Au tomated exposure control, adjustment of the mA and/or kV according to patient size, use of iterative reconstruction technique) 2010 [employer]- All Rights Reserved Reading location - IP/workstation name: [email or web address]
[2019-07-05 11:05] LABS: URINE MARIJUANA (THC) SCREEN UNCONFIRMED POSITIVE
[2019-07-05 12:25] LABS: URIC ACID 4.5 mg/dL (3.5-8.5)
--- NOTE | 2019-07-05 12:35 | RADIOLOGY REPORT (SQ) ---
EXAM DESCRIPTION: CHEST 2 VIEWS IMAGES COMPLETED DATE/TIME: 07/05/2019 12:25 pm REASON FOR STUDY: left sided chest pain COMPARISON: 10/02/2018 TECHNIQUE: Frontal and lateral radiographic views of the chest acquired. NUMBER OF VIEWS: Two view. LIMITATIONS: None. FINDINGS: LUNGS AND PLEURA: No opacities, masses or pneumothorax. No pleural effusion. MEDIASTINUM AND HILAR STRUCTURES: No masses or contour abnormalities. HEART AND VASCULAR STRUCTURES: Heart size top normal. BONES: No acute findings. HARDWARE: None in the chest. OTHER: No other significant finding. IMPRESSION: No acute cardiopulmonary disease. TECHNICAL DOCUMENTATION: JOB ID: [id number] 2010 [employer]- All Rights Reserved Reading location - IP/workstation name: [email or web address]
[2019-07-05] MEDS ORDERED: ONDANSETRON HCL INJ/PF 4 MG/2 ML SDV ONE (12:51)
--- NOTE | 2019-07-05 13:58 | RADIOLOGY REPORT (SQ) ---
EXAM DESCRIPTION: CTA CHEST IMAGES COMPLETED DATE/TIME: 07/05/2019 12:31 pm REASON FOR STUDY: chest pain/elevated d dimer COMPARISON: None. TECHNIQUE: CT scan of the chest performed using helical scanning technique with dynamic intravenous contrast injection. Images reviewed with lung, soft tissue and bone windows. Reconstructed coronal and sagittal MPR images reviewed. Additional 3 dimensional post-processing performed to develop Maximal Intensity Projection images (UT P). All images stored on PACS. All CT scanners at this facility use dose modulation, iterative reconstruction, and/or weight based d osing when appropriate to reduce radiation dose to as low as reasonably achievable (ALARA). [facility]: Dose Right [facility]: CareDose [facility]: Dose Right [facility]: Teradose 4D [facility]: That{img} CONTRAST TYPE AND DOSE: contrast/concentration: Isovue 300.00 mg/ml; Total Contrast Delivered: 70.0 ml; Total Saline Delivered: 80.0 ml Contrast bolus optimized for the pulmonary arteries. Not diagnostic for the aorta. RENAL FUNCTION: None required. The patient is less than 50 years old. RADIATION DOSE: CT Rad equipment meets quality standard of care and radiation dose reduction techniq ues were employed. CTDIvol: 18.0 - 19.8 mGy. DLP: 656 mGy-cm. . LIMITATIONS: None. FINDINGS: LUNGS AND PLEURA: No masses, infiltrates, or pneumothorax. No pleural effusions or pleura l calcifications. AORTA AND GREAT VESSELS: No aneurysm. Contrast bolus not optimized for the aorta. HEART: No pericardial effusion. No significant coronary artery calcifications. PULMONARY ARTERIES: No emboli visualized in the main pulmonary arteries or the segmental branches. HILAR AND MEDIASTINAL STRUCTURES: No identified masses or abnormal nodes. HARDWARE: None in the chest. UPPER ABDOMEN: No significant findings. Limited exam. THYROID AND OTHER SOFT TISSUES: No masses. No adenopathy. BONES: No acute or significant finding. 3D MIPS: Confirm above findings. OTHER: No other significant finding. IMPRESSION: No pulmonary embolism. No acute pulmonary disease. COMMENT: Quality ID # [id number]: Final reports with documentation of one or more dose reduction techniques (e.g., Automated exposure control, adjustment of the mA and/or kV according to patient size, use of iterative reconstruction technique) TECHNICAL DOCUMENTATION: JOB ID: [id number] 2010 [employer]- All Rights Reserved Reading location - IP/workstation name: [email or web address]
--- NOTE | 2019-07-05 14:04 | EKG REPORT ---
SEVERITY:- OTHERWISE NORMAL ECG - SINUS RHYTHM NONSPECIFIC INTRAVENTRICULAR CONDUCTION DELAY : Confirmed by: Nick Herrera MD 05-Jul-2019 14:03:42
[2019-07-05] MEDS ORDERED: TRAMADOL HCL 50 MG TABLET PO ONE (16:11)
--- NOTE | 2019-07-05 16:23 | ER Document Report ---
Entered by TONY TRACEY SCRIBE 07/05/19 1032 Acting as scribe for:NOE COLVIN MD ED General - General Chief Complaint: Flank Pain Stated Complaint: FLANK PAIN Primary Care Provider: SIMBA TOVAR MD [ACTIVE PROVISIONAL STAFF] - Follow up tomorrow EDMOND CHAVES PA-C [Primary Care Provider] - Follow up as needed Information source: Patient Notes: This 43-year-old male presents to the emergency department via EMS complaining of left flank pain that began this morning. Patient describes that the pain sometimes radiates to his abdomen and right now he "feels it in his chest". Patient states that he has never had pain like this before. Patient reports that he went to sleep feeling fine and the pain woke him up this morning. Patient states that last night he had a "fire, laughs and some beer". Patient said that he could not move this morning secondary to pain and that it is difficult for him to take a deep breath. Patient said that this morning he tried to urinate an d it "wasn't easy". Patient reports diarrhea yesterday. Patient denies hematuria, nausea, fever, difficulty swallowing and vomiting. Patient later mentions that he cut down and moved logs about three days ago. TRAVEL OUTSIDE OF THE [place] IN LAST 30 DAYS: No - Related Data Allergies/Adverse Reactions: Penicillins Allergy (Unknown, Verified 10/02/18 15:04) Past Medical History - General Information source: Patient - Social History Smoking Status: Former Smoker Cigarette use (# per day): No Chew tobacco use (# tins/day): No Frequency of alcohol use: Social Drug Abuse: None Lives with: Spouse/Significant other Family History: Arthritis, CAD, DM, Hyperlipidemia, Hypertension, Malignancy, Thyroid Disfunction - Past Medical History Cardiac Medical History: Reports: Hx Atrial Fibrillation, Hx Congestive Heart Failure, Hx Hypercholesterolemia, Hx Hypertension Endocrine Medical History: Reports: Hx Diabetes Mellitus Type 2 GI Medical History: Reports: Hx Gastroesophageal Reflux Disease Musculoskeletal Medical History: Reports Hx Arthritis - KNEES, GOUT, Reports Hx Gout, Reports Hx Musculoskeletal Deformity, Reports Hx Musculoskeletal Trauma Psychiatric Medical History: Reports: Hx Anxiety, Hx Depression Traumatic Medical History: Reports: Hx Fractures Past Surgical History: Reports: Hx Cardiac Catheterization - to close extra duct at age 16, Hx Cardiac Surgery - ablation for some type of unknown arrythmia., Hx Cholecystectomy, Hx Orthopedic Surgery - Bilat knees - Immunizations Immunizations up to date: Yes Hx Diphtheria, Pertussis, Tetanus Vaccination: Yes Review of Systems - Review of Systems Constitutional: See HPI. denies: Fever EENT: See HPI. denies: Difficulty swallowing Cardiovascular: See HPI, Chest pain Respiratory: See HPI, Short of breath Gastrointestinal: See HPI, Abdominal pain, Diarrhea. denies: Nausea, Vomiting Genitourinary: See HPI, Flank pain. denies: Hematuria Male Genitourinary: No symptoms reported Musculoskeletal: No symptoms reported Skin: No symptoms reported Hematologic/Lymphatic: No symptoms reported Neurological/Psychological: No symptoms reported -: Yes All other systems reviewed and negative Physical Exam - Vital signs Vitals: Temp Pulse Resp BP Pulse Ox 97.7 F 74 20 87/64 L 100 07/05/19 10:32 07/05/19 10:32 07/05/19 10:32 07/05/19 10:32 07/05/19 10:32 - Notes Notes: Physical Exam: General: Alert, appears uncomfortable. In moderate distress. HEENT: Normocephalic. Atraumatic. PERRL. Extraocular movements intact. Oropharynx clear. Neck: Supple. Non-tender. Respiratory: No respiratory distress. Clear and equal breath sounds bilaterally. Cardiovascular: Regular rate and rhythm. Abdominal: Normal Inspection. Non-tender. No distension. Normal Bowel Sounds. Back: No gross abnormalities. Left flank tenderness to palpation with associated macular redness with no bruising or trauma noted. Extremities: Moves all four extremities. Upper extremities: Normal inspection. Normal ROM. Lower extremities: Normal inspection. No edema. Normal ROM. Neurological: Normal cognition. AAOx4. Normal speech. Psychological: Normal affect. Normal Mood. Skin: Warm. Dry. Normal color. Course - Re-evaluation Re-evalutation: 07/05/19 16:12 Patient continues to say it hurts in his back when he tries to move or sit up. Thus far we have not found any internal life-threatening injuries or fractures or collapsed lung or heart attack at this time. Patient is hemodynamically stable. Patient gives no history of any trauma. Has not had any fever or chills. Patient reports that he did drink about 15 beers last night slept on the couch until his asked him to come to the bedroom which he did. Patient does not remember falling. - Vital Signs Vital signs: Temp Pulse Resp BP Pulse Ox 97.7 F 74 20 124/72 100 07/05/19 10:32 07/05/19 10:32 07/05/19 10:32 07/05/19 13:01 07/05/19 10:32 - Laboratory Result Diagrams: 07/05/19 10:20 07/05/19 10:20 Laboratory results interpreted by me: 07/05/19 07/05/19 07/05/19 10:20 10:20 10:20 WBC 10.9 H D-Dimer Sodium 135.4 L Creatinine 1.69 H Est GFR ( Amer) 53 L Est GFR (MDRD) Non-Af 44 L Lactic Acid Urine Protein 100 H 07/05/19 07/05/19 10:20 12:03 WBC D-Dimer 0.99 H Sodium Creatinine Est GFR ( Amer) Est GFR (MDRD) Non-Af Lactic Acid 2.2 H Urine Protein - Diagnostic Test Radiology reviewed: Image reviewed, Reports reviewed Radiology results interpreted by me: 07/05/19 12:16 CT scan of abdomen and pelvis no contrast eels no acute process no stones seen no obstruction no inflammatory disease noted. 07/05/19 16:13 CTA of chest shows no pulmonary emboli no other acute process Chest x-ray 1 view no acute process no fractures left ribs unremarkable no infiltrates. 07/05/19 16:14 12 This twelve-lead EKG may be in his phone 14 - EKG Interpretation by Me Additional EKG results interpreted by me: 07/05/19 12:16 12-lead EKG today at 1210 shows normal sinus rhythm rate of [address] T wave changes early re-pole changes noted not new from prior EKG. 07/05/19 16:15 Twelve-lead EKG done at 1210 shows normal sinus rhythm rate of [address]-T wave changes. Discharge - Discharge Clinical Impression: Left-sided chest wall pain Condition: Fair Disposition: HOME, SELF-CARE Instructions: Anti-Inflammatory Medication ([facility]), Chest Wall Pain ([facility]) Additional Instructions: TChest Wall Pain Your chest pain has been diagnosed as coming from the chest wall. This is often caused by straining the muscles or joints in the chest during physical activity, direct trauma, coughing, or vigorous vomiting. Persons with arthritis are especially prone to this type of pain, due to inflammation of the cartilage joints near the breast bone. Occasionally, no cause can be found. Rest from strenuous physical activity. This kind of chest pain is usually made worse by movement of the chest. Depending on the symptoms, we may p rescribe medicine for pain, muscle relaxation, and antiinflammatory effects. If the pain is new, and seems to be due to muscle strain, cold packs can help. Otherwise, apply gentle warmth to the painful area for 15 minutes every hour or two. You should contact the doctor immediately if things change. Further evaluation is needed if you develop a fever or cough, if the nature of the pain changes, or if you become short of breath. Mistakenly you were sent a prescription for Augmentin to the pharmacy which was done in error by Dr. Colvin please ignore this prescription and do not fill it. Also second mistake was that we referred I referred you to a Dr. Tovar in follow-up in the chart, again this was a mistake and you are not to follow-up with Dr. Tovar who is an orthopedic doctor. Prescriptions: Tramadol HCl [Ultram 50 mg Tablet] 50 mg PO Q4HP PRN 3 Days #12 tab PRN Reason: Amoxicillin/Potassium Clav [Augmentin 875-125 Tablet] 1 tab PO BID #20 tab Baclofen [Baclofen 10 mg Tablet] 10 mg PO TID PRN #10 tab PRN Reason: muscle spasm Ibuprofen [Motrin 800 mg Tablet] 800 mg PO Q8H PRN #30 tab PRN Reason: pain Referrals: EDMOND CHAVES PA-C [Primary Care Provider] - Follow up as needed I personally performed the services described in the documentation, reviewed and edited the documentation which was dictated to the scribe in my presence, and it accurately records my words and actions.
[2019-07-05 17:00] VITALS: BP 126/80
== END 2019-07-05 17:00 | disposition home or self-care (01) ==
LOC: ER 10:15
DX: R07.89 Other chest pain (principal); R10.9 Unspecified abdominal pain; I48.91 Unspecified atrial fibrillation; I50.9 Heart failure, unspecified; E78.00 Pure hypercholesterolemia, unspecified; I11.0 Hypertensive heart disease with heart failure; E11.9 Type 2 diabetes mellitus without complications; Z88.0 Allergy status to penicillin; Z90.49 Acquired absence of other specified parts of digestive tract
CPT/HCPCS: 93005; 96376; 99285; 96361; 96374; 96375; 36415; 82550; 83605; 84550; 85025; 80053; 81001; 84484; 80307; 85379; 71046; 71275; 74176; 93010; J2270; J2405; J7030